=== PATIENT | female | born 1990 | race Caucasian/White ===

== ENCOUNTER 2023-04-20 21:10 | Observation (INO) | payer MEDICAID ==
[~2023-04-20] VITALS: Ht 160 cm; Wt 116.0 kg
[2023-04-20 21:35] VITALS: O2SAT 100
[2023-04-20] MEDS ORDERED: ACETAMINOPHEN 325MG TABLET PO STA (22:56)
[2023-04-20] MEDS ORDERED: SODIUM CHLORIDE 0.9% 1,000 ML IV ONE (23:00)
[2023-04-20 23:21] LABS: BASOPHILS % 0.2 % (0.0-2.0); HEMATOCRIT. 35.9 % (36.0-48.0); HEMOGLOBIN. 11.9 g/dL (12.0-16.0); LYMPHOCYTES % 12.2 % (20.0-50.0); MEAN CORPUSCULAR HEMOGLOBIN 29.6 pg (28.0-32.0); MEAN CORPUSCULAR HGB CONC 33.1 g/dL (31.0-37.0); MEAN CORPUSCULAR VOLUME 89.5 fL (81.0-99.0); MONOCYTES % 8.2 % (2.0-8.0); NEUTROPHILS % 78.4 % (40.0-76.0); PLATELET 167 x1000/uL (130-400); RED BLOOD CELL COUNT 4.01 mill/uL (4.2-5.4); RED CELL DISTRIBUTION WIDTH 14.3 % (11.6-14.6); WHITE BLOOD COUNT 10.2 x1000/uL (4.5-11.0)
[2023-04-20 23:48] LABS: ALBUMIN 2.6 g/dL (3.4-5.0); CALCIUM 8.5 mg/dL (8.5-10.1); CARBON DIOXIDE 22 mEq/L (21-32); CHLORIDE 108 mEq/L (98-107); GLUCOSE 110 mg/dL (70-105); INDEX HEMOLYSI 1 (1-3); INDEX ICTERIC 1 (1-4); INDEX LIPEMIC 1 (1-3); POTASSIUM 3.7 mEq/L (3.5-5.1); SODIUM 135 mEq/L (136-145); UREA NITROGEN BLOOD 6 mg/dL (7-21)
[2023-04-20 23:53] LABS: ALANINE AMINOTRANSFERASE 13 IU/L (13-61); ASPARTATE AMINOTRANSFERASE 13 IU/L (15-37); BILIRUBIN TOTAL 0.3 mg/dL (0.1-1.0); CREATININE 0.7 mg/dL (0.6-1.3); PROTEIN TOTAL 6.7 g/dL (6.0-8.3)
[2023-04-21 00:23] LABS: CLARITY URINE CLOUDY (CLEAR); COLOR URINE YELLOW (YELLOW); GLUCOSE URINE NEGATIVE (NEGATIVE); KETONES URINE TRACE (NEGATIVE); LEUKOCYTE ESTERASE URINE 1+ (NEGATIVE); NITRITE URINE POSITIVE (NEGATIVE); OCCULT BLOOD URINE TRACE (NEGATIVE); PH URINE 6.5 (4.5-8.0); PROTEIN URINE TRACE (NEGATIVE); SPECIFIC GRAVITY URINE 1.021 (1.005-1.030)
[2023-04-21] MEDS ORDERED: CEPH500C2 MT (01:18)
[2023-04-21 01:21] VITALS: BP 120/70; PULSE 75; RESP 15; TEMP 99.3
[2023-04-21] MEDS ORDERED: PNV1TABL76 MT (04:56)
[2023-04-21 05:49] LABS: SQUAMOUS EPITHELIAL CELL URINE 1+ /lpf (RARE/1+)
[2023-04-21 05:51] LABS: RBC URINE 0-2 /hpf (0-2); WBC URINE 0-2 /hpf (0-2)
[2023-04-21 05:52] LABS: BACTERIA URINE 3+
== END 2023-04-21 07:00 | disposition home or self-care (01) ==
LOC: ER 21:10 → 8EST NSY 04-21 01:31
PROVIDERS: ADMIT Specialist; ATTEND Specialist
DX: O23.43 Unspecified infection of urinary tract in pregnancy, third trimester (principal); Z20.822 Contact with and (suspected) exposure to COVID-19; O23.03 Infections of kidney in pregnancy, third trimester; N12 Tubulo-interstitial nephritis, not specified as acute or chronic; O99.283 Endocrine, nutritional and metabolic diseases complicating pregnancy, third trimester; E86.0 Dehydration; O99.891 Other specified diseases and conditions complicating pregnancy; M54.50 Low back pain, unspecified; O26.893 Other specified pregnancy related conditions, third trimester; R51.9 Headache, unspecified; R50.9 Fever, unspecified; Z3A.33 33 weeks gestation of pregnancy
CPT/HCPCS: 96360; 80053; 81003; 83605; 85025; 36415; 76818; 76805; 99284; 59025; 87040; 87804 ×2; 87426; J7030; G0378 ×2; 99281

== ENCOUNTER 2023-05-19 10:00 | Observation (INO) | payer MEDICAID ==
[~2023-05-19] VITALS: Ht 160 cm; Wt 117.9 kg
[~2023-05-19 10:00] MED LIST: CEPH500C2 MT; PNV1TABL76 MT
== END 2023-05-19 15:10 | disposition home or self-care (01) ==
LOC: 8 EST LDRP 10:00
PROVIDERS: ADMIT Obstetrics & Gynecology; ATTEND Obstetrics & Gynecology
DX: O62.9 Abnormality of forces of labor, unspecified (principal); Z3A.36 36 weeks gestation of pregnancy
CPT/HCPCS: 59025; 76818; 76805; G0378 ×2; 99281